=== PATIENT | female | born 1975 | race Caucasian/White ===

== ENCOUNTER 2023-09-07 21:51 | Emergency (ER) | payer MEDICAID ==
[~2023-09-07] VITALS: Ht 165.1 cm; Wt 72.6 kg
[2023-09-07] MEDS ORDERED: HYDROMORPHONE 1 MG/1 ML DISP.SYRIN IV ONE (22:30)
[2023-09-07] MEDS ORDERED: ONDANSETRON 4 MG/2 ML VIAL IV ONE (22:30)
[2023-09-07] MEDS ORDERED: NITROGLYCERIN OINT 1 GM PACKET TP ONE ×2 (22:30→22:36)
[2023-09-07] MEDS ORDERED: KETOROLAC TROMETHAMINE 15 MG INJ IVP ONE (22:30)
[2023-09-07] MEDS ORDERED: ASPIRIN 81 MG TAB.CHEW PO ONE (22:30)
[2023-09-07] MEDS ORDERED: ONDANSETRON 4 MG/2 ML VIAL ONE (22:36)
[2023-09-07] MEDS ORDERED: ASPIRIN 81 MG TAB.CHEW ONE (22:36)
[2023-09-07] MEDS ORDERED: HYDROMORPHONE 1 MG/1 ML DISP.SYRIN ONE (22:37)
[2023-09-07] MEDS ORDERED: KETOROLAC TROMETHAMINE 15 MG INJ ONE (22:37)
[2023-09-07 22:44] LABS: BASOPHILS % (AUTO) 0.4 % (0.0-2.0); DIFFERENTIAL COMMENT 0; EOSINOPHILS # (AUTO) 0.3 K/uL (0.0-0.7); EOSINOPHILS % (AUTO) 6.8 % (0.0-7.0); HEMATOCRIT 42.7 % (31.2-41.9); HEMOGLOBIN 14.1 g/dL (10.9-14.3); LYMPHOCYTES # (AUTO) 0.3 K/uL (0.8-4.8); LYMPHOCYTES % (AUTO) 6.3 % (20.5-51.5); MEAN CORPUSCULAR HEMOGLOBIN 29.4 uug (24.7-32.8); MEAN CORPUSCULAR HGB CONC 33 g/dL (32.3-35.6); MEAN CORPUSCULAR VOLUME 88.9 fL (75.5-95.3); MONOCYTES # (AUTO) 0.1 K/uL (0.1-1.30); MONOCYTES % (AUTO) 2.5 % (0.0-11.0); NEUTROPHILS # (AUTO) 3.6 K/uL (1.8-8.9); PLATELET COUNT (AUTO) 154 K/uL (179-408); RED CELL DISTRIBUTION WIDTH 12.5 % (12.3-17.7); WHITE BLOOD COUNT (AUTO) 4.3 K/uL (3.8-11.8)
[2023-09-07 22:46] LABS: CARBON DIOXIDE 26 mmol/L (21-32); CHLORIDE 102 mmol/L (98-107); CREATININE 0.6 mg/dL (0.6-1.3); GLUCOSE 101 mg/dL (74-106); POTASSIUM 4.9 mmol/L (3.5-5.1); SODIUM SERUM 139 mmol/L (136-145); UREA NITROGEN, BLOOD 7 mg/dL (7-18)
[2023-09-07 22:47] LABS: CALCIUM 9.2 mg/dL (8.5-10.1)
[2023-09-07 23:00] LABS: ALANINE AMINOTRANSFERASE 20 U/L (14-59); ALKALINE PHOSPHATASE 73 U/L (50-136); ASPARTATE AMINOTRANSFERASE 27 U/L (15-37); BILIRUBIN,DIRECT 0.1 mg/dL (0.0-0.2); BILIRUBIN,TOTAL 0.7 mg/dL (0.2-1.0); NT-PRO BNP 25 pg/mL (0-125); TOTAL PROTEIN, SERUM 7.7 g/dL (6.4-8.2)
[2023-09-07] MEDS ORDERED: HYDR-3980 PO (23:44)
[2023-09-07] MEDS ORDERED: ONDA4TAB5 PO (23:44)
[2023-09-07 23:54] VITALS: BP 111/74; TEMP 98.7; O2SAT 100
== END 2023-09-07 23:54 | disposition home or self-care (01) ==
LOC: ER 21:54
DX: B34.9 Viral infection, unspecified (principal); R51.9 Headache, unspecified; J02.9 Acute pharyngitis, unspecified; R07.89 Other chest pain; F17.210 Nicotine dependence, cigarettes, uncomplicated; Z79.899 Other long term (current) drug therapy; Z20.822 Contact with and (suspected) exposure to COVID-19
CPT/HCPCS: 99285; 96374; 71045; 96375; 87426; 87804 ×2; 80076; 80048; 83880; 85025; 84484; 36415; 93005; J1885; J2405; J1170; A4606; A4663

== ENCOUNTER 2024-10-25 13:05 | Emergency (ER) | payer MEDICAID, OTHER ==
[~2024-10-25] VITALS: Ht 167.6 cm; Wt 73.9 kg
[~2024-10-25 13:05] MED LIST: HYDR-3980 PO; ONDA4TAB5 PO
[2024-10-25] MEDS ORDERED: ACET1TAB23 PO (16:19)
[2024-10-25 16:33] VITALS: BP 112/80; TEMP 98; O2SAT 99
== END 2024-10-25 16:34 | disposition home or self-care (01) ==
LOC: ER 13:05
DX: B34.9 Viral infection, unspecified (principal); F17.210 Nicotine dependence, cigarettes, uncomplicated; Z20.822 Contact with and (suspected) exposure to COVID-19; Z79.899 Other long term (current) drug therapy
CPT/HCPCS: A4606; A4663

== ENCOUNTER 2024-10-28 21:58 | Emergency (ER) | payer MEDICAID ==
[~2024-10-28] VITALS: Ht 167.6 cm; Wt 72.6 kg
[~2024-10-28 21:58] MED LIST changes: +ACET1TAB23 PO
[2024-10-29 00:02] VITALS: O2SAT 100
[2024-10-29] MEDS ORDERED: FLUT16SP16 BNOSTRILS (01:09)
[2024-10-29] MEDS ORDERED: P-EP-92 PO (01:09)
== END 2024-10-29 01:57 | disposition home or self-care (01) ==
LOC: ER 22:15
DX: J22 Unspecified acute lower respiratory infection (principal); B97.89 Other viral agents as the cause of diseases classified elsewhere; G47.00 Insomnia, unspecified; R09.81 Nasal congestion; F17.200 Nicotine dependence, unspecified, uncomplicated; Z20.822 Contact with and (suspected) exposure to COVID-19
CPT/HCPCS: A4606; A4663